=== PATIENT | female | born 1955 | race Caucasian/White ===

== ENCOUNTER 2022-02-20 10:35 | Emergency (ER) | payer OTHER ==
[2022-02-20 10:46] VITALS: BP 160/72; PULSE 65; TEMP 97.4; BMI 29.5
[2022-02-20 12:19] LABS: VENOUS BASE EXCESS 2.8 mmol/L (-2-2); VENOUS O2 SATURATION 32.5 % (70-80); VENOUS PCO2 45.1 mmHg (38-52); VENOUS PH 7.411 (7.310-7.410)
[2022-02-20 12:20] LABS: BASO % 0.5 % (0-2.0); EOS % 11.5 % (0-4.5); HEMATOCRIT 37.6 % (32.4-45.2); LYMPH % 12.8 % (8-40); MCH 28.8 pg (25.7-33.7); MCHC 34.6 g/dl (32.0-36.0); MEAN CELL VOLUME 83.1 fl (80-96); MEAN PLT VOLUME 6.9 fl (7.5-11.1); MONO % 6.9 % (3.8-10.2); NEUT % 68.3 % (42.8-82.8); PLATELET COUNT 264 10^3/uL (134-434); RBC 4.53 M/mm3 (3.60-5.2); RDW 13.7 % (11.6-15.6); WHITE BLOOD COUNT 8.2 K/mm3 (4.0-10.0)
[2022-02-20 12:44] LABS: CALCIUM 9.6 mg/dL (8.5-10.1)
[2022-02-20 12:45] LABS: ALBUMIN 3.7 g/dl (3.4-5.0)
[2022-02-20 12:48] LABS: CREATININE 0.8 mg/dL (0.55-1.3)
[2022-02-20] MEDS ORDERED: ALBUTEROL SO4 2.5/IPRATROPIUM 0.5 INH SOL 3 ML VIAL.NEB. NEB ONE ×2 (12:48→12:58)
[2022-02-20 12:50] LABS: BILIRUBIN,TOTAL 0.4 mg/dL (0.2-1); TOT PROT 7.1 g/dl (6.4-8.2)
[2022-02-20] MEDS ORDERED: SODIUM CHLORIDE 0.9% 500 ML INFUS.BAG IV ONE (13:40)
== END 2022-02-20 16:11 | disposition home or self-care (01) ==
LOC: JER 10:35
PROC: 3E0F7GC Introduction of Other Therapeutic Substance into Respiratory Tract, Via Natural or Artificial Opening (ICD-10-PCS; principal; 2022-02-20)
DX: R06.02 Shortness of breath (principal); R07.9 Chest pain, unspecified
CPT/HCPCS: 36415; 71046-TC-FY; 80053; 82803; 84484; 85025; 93005; 93010; 99285-25

== ENCOUNTER 2022-06-04 15:26 | Emergency (ER) | payer OTHER ==
[2022-06-04 15:43] VITALS: BP 132/75; PULSE 68; RESP 22; TEMP 98.1; BMI 65.2
[2022-06-04] MEDS ORDERED: DEXAMETHASONE SOD PHOSPHATE 10 MG/1 ML VIAL IM ONE (16:58)
[2022-06-04] MEDS ORDERED: DEXAMETHASONE SOD PHOSPHATE 10 MG/1 ML VIAL ONE (17:15)
[2022-06-04] MEDS ORDERED: ALBUTEROL SO4 2.5/IPRATROPIUM 0.5 INH SOL 3 ML VIAL.NEB. NEB ONE ×2 (17:15→17:26)
[2022-06-04] MEDS: ALBUTEROL SO4 2.5/IPRATROPIUM 0.5 INH SOL 3 ML VIAL.NEB. NEB SCH ×2 (17:25→18:26)
== END 2022-06-04 18:45 | disposition home or self-care (01) ==
LOC: JER 15:26
PROC: 3E023GC Introduction of Other Therapeutic Substance into Muscle, Percutaneous Approach (ICD-10-PCS; principal; 2022-06-04)
PROC: 3E0F7GC Introduction of Other Therapeutic Substance into Respiratory Tract, Via Natural or Artificial Opening (ICD-10-PCS; 2022-06-04)
DX: J44.1 Chronic obstructive pulmonary disease with (acute) exacerbation (principal)
CPT/HCPCS: 0241U-QW; 99284-25; J1100

== ENCOUNTER 2022-06-06 18:49 | Observation (INO) | payer OTHER ==
[2022-06-06 21:25] VITALS: BMI 29.5
[2022-06-06 23:00] LABS: BASO % 0.4 % (0-2.0); EOS % 0.4 % (0-4.5); HEMATOCRIT 38.1 % (32.4-45.2); HEMOGLOBIN 12.8 GM/dL (10.7-15.3); LYMPH % 8.3 % (8-40); MCH 27.9 pg (25.7-33.7); MCHC 33.5 g/dl (32.0-36.0); MEAN CELL VOLUME 83.3 fl (80-96); MEAN PLT VOLUME 6.9 fl (7.5-11.1); MONO % 3.2 % (3.8-10.2); NEUT % 87.7 % (42.8-82.8); PLATELET COUNT 303 10^3/uL (134-434); RBC 4.58 M/mm3 (3.60-5.2); RDW 14.7 % (11.6-15.6); WHITE BLOOD COUNT 7.6 K/mm3 (4.0-10.0)
[2022-06-06 23:22] LABS: CALCIUM 9.4 mg/dL (8.5-10.1)
[2022-06-06 23:23] LABS: ALBUMIN 3.9 g/dl (3.4-5.0); BLOOD UREA NITROGEN 13.5 mg/dL (7-18)
[2022-06-06 23:26] LABS: CREATININE 0.9 mg/dL (0.55-1.3)
[2022-06-06 23:28] LABS: TOT PROT 7.6 g/dl (6.4-8.2)
[2022-06-07 01:08] LABS: BILIRUBIN,TOTAL 0.4 mg/dL (0.2-1)
[2022-06-07] MEDS ORDERED: ASPIRIN 81 MG CHEWABLE TABLETS PO ONE (01:47)
[2022-06-07] MEDS ORDERED: ALBUTEROL SO4 0.083% IH SOL 2.5 MG/3 ML VIAL.NEB. NEB PRN (02:10)
[2022-06-07] MEDS ORDERED: ASPIRIN 81 MG CHEWABLE TABLETS ONE (02:59)
[2022-06-07] MEDS: INSULIN SLIDING SCALE (NOVOLOG) 1 VIAL SQ SCH ×2 (07:00→11:35)
[2022-06-07 07:59] LABS: BASO % 0.2 % (0-2.0); EOS % 1.9 % (0-4.5); HEMATOCRIT 35.7 % (32.4-45.2); HEMOGLOBIN 12.3 GM/dL (10.7-15.3); MCH 28.4 pg (25.7-33.7); MCHC 34.4 g/dl (32.0-36.0); MEAN CELL VOLUME 82.5 fl (80-96); MEAN PLT VOLUME 7.1 fl (7.5-11.1); MONO % 8.1 % (3.8-10.2); NEUT % 74.8 % (42.8-82.8); PLATELET COUNT 292 10^3/uL (134-434); RBC 4.33 M/mm3 (3.60-5.2); RDW 14.5 % (11.6-15.6); WHITE BLOOD COUNT 8.3 K/mm3 (4.0-10.0)
[2022-06-07 08:34] LABS: CALCIUM 9.4 mg/dL (8.5-10.1)
[2022-06-07 08:35] LABS: MAGNESIUM 2.4 mg/dL (1.8-2.4)
[2022-06-07 08:36] LABS: BLOOD UREA NITROGEN 16.5 mg/dL (7-18)
[2022-06-07 08:37] LABS: ALBUMIN 3.7 g/dl (3.4-5.0)
[2022-06-07 08:39] LABS: CREATININE 0.7 mg/dL (0.55-1.3)
[2022-06-07 08:40] LABS: TOT PROT 6.8 g/dl (6.4-8.2)
[2022-06-07 08:42] LABS: BILIRUBIN,TOTAL 0.4 mg/dL (0.2-1)
[2022-06-07] MEDS ORDERED: FLUTICASONE/UMECLIDIN/VILANTER(200-62.5-25 TRELEGY ELLIPTA) INAHLER IH SCH (10:00)
[2022-06-07] MEDS ORDERED: PANTOPRAZOLE 40 MG TABLET PO SCH (10:00)
[2022-06-07] MEDS ORDERED: amLODIPine BESYLATE 5 MG TABLET (FP) PO SCH (10:00)
[2022-06-07] MEDS ORDERED: PANTOPRAZOLE 40 MG TABLET PO ONE (10:32)
[2022-06-07] MEDS ORDERED: metoPROLOL SUCCINATE 25 MG TAB.SR.24H (FP) PO ONE (10:33)
[2022-06-07] MEDS ORDERED: amLODIPine BESYLATE 5 MG TABLET (FP) ONE (10:33)
[2022-06-07] MEDS ORDERED: ALBUTEROL SO4 2.5/IPRATROPIUM 0.5 INH SOL 3 ML VIAL.NEB. NEB ONE (14:00)
[2022-06-07 15:33] VITALS: BP 143/72; PULSE 59; RESP 18; TEMP 98.1
[2022-06-07] MEDS ORDERED: ATORVASTATIN CA 80 MG TABLET (FP) PO SCH (22:00)
[2022-06-07] MEDS ORDERED: MONTELUKAST NA 10 MG TABLET PO SCH (22:00)
[2022-06-08] MEDS ORDERED: ASPIRIN 81 MG CHEWABLE TABLETS PO SCH (10:00)
== END 2022-06-07 15:30 | disposition home or self-care (01) ==
LOC: JER 18:49 → JERBED 06-07 00:31
PROVIDERS: ADMIT Internal Medicine; ATTEND Internal Medicine
PROC: 3E0F7GC Introduction of Other Therapeutic Substance into Respiratory Tract, Via Natural or Artificial Opening (ICD-10-PCS; principal; 2022-06-07)
DX: R07.89 Other chest pain (principal); J45.909 Unspecified asthma, uncomplicated; I10 Essential (primary) hypertension; E11.9 Type 2 diabetes mellitus without complications; K21.9 Gastro-esophageal reflux disease without esophagitis; Z20.822 Contact with and (suspected) exposure to COVID-19; Z95.5 Presence of coronary angioplasty implant and graft; Z88.0 Allergy status to penicillin
CPT/HCPCS: 36415; 71045-TC-FY; 76705-TC; 80053; 80061; 82962; 83690; 83735; 83880; 84484; 85025; 85379; 93005; 93010; 94640; 99285-25; C9803-CS; G0378; U0003; U0005

== ENCOUNTER 2022-06-10 08:14 | Emergency (ER) | payer OTHER ==
[2022-06-10 08:36] VITALS: RESP 20; TEMP 97.5; BMI 25.4
[2022-06-10] MEDS ORDERED: ALBUTEROL SO4 2.5/IPRATROPIUM 0.5 INH SOL 3 ML VIAL.NEB. NEB ONE (08:37)
[2022-06-10] MEDS: ALBUTEROL SO4 2.5/IPRATROPIUM 0.5 INH SOL 3 ML VIAL.NEB. NEB SCH ×2 (09:14→09:17)
[2022-06-10 09:52] VITALS: BP 138/67; PULSE 56
== END 2022-06-10 11:41 | disposition home or self-care (01) ==
LOC: JER 08:14
PROC: 3E0F7GC Introduction of Other Therapeutic Substance into Respiratory Tract, Via Natural or Artificial Opening (ICD-10-PCS; principal; 2022-06-10)
DX: U07.1 COVID-19 (principal); J44.1 Chronic obstructive pulmonary disease with (acute) exacerbation
CPT/HCPCS: 0241U-QW; 93005; 93010; 94640; 99284-25

== ENCOUNTER 2022-06-12 10:38 | Emergency (ER) | payer OTHER ==
[2022-06-12 11:15] VITALS: BP 150/69; PULSE 58; RESP 22; TEMP 97.7; BMI 29.5
[2022-06-12] MEDS ORDERED: ALBUTEROL SO4 2.5/IPRATROPIUM 0.5 INH SOL 3 ML VIAL.NEB. NEB ONE (11:27)
[2022-06-12] MEDS: ALBUTEROL SO4 2.5/IPRATROPIUM 0.5 INH SOL 3 ML VIAL.NEB. NEB SCH ×4 (11:28→12:04)
[2022-06-12 11:51] LABS: INR 1.11 (0.83-1.09); PROTHROMBIN TIME (PATIENT) 12.8 SEC (9.7-13.0)
[2022-06-12 11:55] LABS: ACTIVATED PTT 24.3 SECONDS (25.2-36.5)
[2022-06-12 12:02] LABS: ALBUMIN 3.8 g/dl (3.4-5.0)
[2022-06-12 12:03] LABS: BLOOD UREA NITROGEN 13.1 mg/dL (7-18)
[2022-06-12 12:05] LABS: CREATININE 0.7 mg/dL (0.55-1.3)
[2022-06-12 12:05] LABS: PH,URINE 7.5 (5.0-8.0); URINE APPEARANCE CLEAR; URINE BILIRUBIN NEGATIVE (NEGATIVE); URINE COLOR YELLOW; URINE GLUCOSE (UA) NEGATIVE (NEGATIVE); URINE KETONE NEGATIVE (NEGATIVE); URINE LEUK ESTERASE NEGATIVE (NEGATIVE); URINE NITRITE NEGATIVE (NEGATIVE); URINE PROTEIN NEGATIVE (NEGATIVE); URINE UROBILINOGEN 0.2 mg/dL (0.2-1.0)
[2022-06-12 12:07] LABS: BILIRUBIN,TOTAL 0.5 mg/dL (0.2-1); TOT PROT 7.2 g/dl (6.4-8.2)
[2022-06-12 12:09] LABS: BASO % 0.4 % (0-2.0); EOS % 9.5 % (0-4.5); HEMATOCRIT 38.4 % (32.4-45.2); LYMPH % 23.5 % (8-40); MCH 27.8 pg (25.7-33.7); MCHC 33.8 g/dl (32.0-36.0); MEAN CELL VOLUME 82.3 fl (80-96); MEAN PLT VOLUME 7.4 fl (7.5-11.1); MONO % 9.8 % (3.8-10.2); NEUT % 56.8 % (42.8-82.8); PLATELET COUNT 307 10^3/uL (134-434); RBC 4.66 M/mm3 (3.60-5.2); RDW 14.7 % (11.6-15.6); WHITE BLOOD COUNT 9.7 K/mm3 (4.0-10.0)
== END 2022-06-12 17:54 | disposition home or self-care (01) ==
LOC: JER 10:38
PROC: 3E0F7GC Introduction of Other Therapeutic Substance into Respiratory Tract, Via Natural or Artificial Opening (ICD-10-PCS; principal; 2022-06-12)
DX: U07.1 COVID-19 (principal)
CPT/HCPCS: 36415; 71045-TC-FY; 71275-TC; 80053; 81003; 84484; 85025; 85610; 85730; 87086; 93005; 93010; 94640; 99285-25; Q9967

== ENCOUNTER 2023-05-05 17:07 | Inpatient (IN) | payer OTHER ==
[2023-05-05] MEDS ORDERED: methylPREDNISolone NA SUCC 125 MG/2 ML VIAL IVPUSH ONE (18:09)
[2023-05-05] MEDS ORDERED: AZITHROMYCIN IVPB 500 MG in DEXTROSE 5%-WATER - 250 ML IVPB ONE (18:26)
[2023-05-05] MEDS ORDERED: CEFTRIAXONE 1,000 MG in DEXTROSE 5%-WATER - 50 ML IVPB ONE (18:26)
[2023-05-05] MEDS ORDERED: methylPREDNISolone NA SUCC 125 MG/2 ML VIAL ONE (18:33)
[2023-05-05] MEDS ORDERED: ALBUTEROL SO4 2.5/IPRATROPIUM 0.5 INH SOL 3 ML VIAL.NEB. NEB ONE (18:33)
[2023-05-05] MEDS ORDERED: CEFTRIAXONE 1 GM/50 ML BAG ONE (18:34)
[2023-05-05] MEDS: ALBUTEROL SO4 2.5/IPRATROPIUM 0.5 INH SOL 3 ML VIAL.NEB. NEB SCH ×2 (18:41→19:03)
[2023-05-05 18:43] LABS: VENOUS BASE EXCESS 2.2 mmol/L (-2-2); VENOUS O2 SATURATION 85.5 % (70-80); VENOUS PCO2 34.2 mmHg (38-52); VENOUS PH 7.485 (7.310-7.410)
[2023-05-05] MEDS ORDERED: AZITHROMYCIN IVPB 500 MG/250 ML BAG IVPB ONE (18:57)
[2023-05-05 18:59] LABS: BASO % 0.4 % (0-2.0); EOS % 10.4 % (0-4.5); HEMATOCRIT 37.7 % (32.4-45.2); HEMOGLOBIN 12.6 GM/dL (10.7-15.3); LYMPH % 12.3 % (8-40); MCH 26.9 pg (25.7-33.7); MCHC 33.5 g/dl (32.0-36.0); MEAN CELL VOLUME 80.2 fl (80-96); MEAN PLT VOLUME 7.3 fl (7.5-11.1); MONO % 7.4 % (3.8-10.2); NEUT % 69.5 % (42.8-82.8); PLATELET COUNT 349 10^3/uL (134-434); RDW 14.2 % (11.6-15.6)
[2023-05-05 19:18] LABS: CALCIUM 9.6 mg/dL (8.5-10.1)
[2023-05-05 19:19] LABS: ALBUMIN 3.8 g/dl (3.4-5.0); BLOOD UREA NITROGEN 12.7 mg/dL (7-18)
[2023-05-05 19:22] LABS: CREATININE 0.8 mg/dL (0.55-1.3)
[2023-05-05 19:23] LABS: BILIRUBIN,TOTAL 0.4 mg/dL (0.2-1)
[2023-05-05 19:27] LABS: N-TERMINAL BNP 77.6 pg/ml (5-125)
[2023-05-05] MEDS: ALBUTEROL SO4 2.5/IPRATROPIUM 0.5 INH SOL 3 ML VIAL.NEB. NEB PRN (23:50)
[2023-05-06 02:35] VITALS: BMI 34.0
[2023-05-06] MEDS: methylPREDNISolone NA SUCC 40 MG/1 ML VIAL IVPUSH SCH ×4 (03:38→21:41)
[2023-05-06] MEDS: ACETAMINOPHEN 325 MG TABLET (FP) PO PRN ×3 (04:02→21:39)
[2023-05-06] MEDS: ALBUTEROL SO4 2.5/IPRATROPIUM 0.5 INH SOL 3 ML VIAL.NEB. NEB PRN (06:37)
[2023-05-06] MEDS: metFORMIN HCL 500 MG TABLET (FP) PO SCH ×2 (06:46→16:36)
[2023-05-06] MEDS: INSULIN SLIDING SCALE (NOVOLOG) 1 VIAL SQ SCH ×4 (06:46→21:47)
[2023-05-06 08:56] LABS: BASO % 0.1 % (0-2.0); EOS % 0.2 % (0-4.5); HEMATOCRIT 36.9 % (32.4-45.2); HEMOGLOBIN 12.2 GM/dL (10.7-15.3); LYMPH % 8.3 % (8-40); MCH 27.1 pg (25.7-33.7); MCHC 33.1 g/dl (32.0-36.0); MEAN PLT VOLUME 7.5 fl (7.5-11.1); MONO % 1.3 % (3.8-10.2); NEUT % 90.1 % (42.8-82.8); PLATELET COUNT 338 10^3/uL (134-434); RDW 14.2 % (11.6-15.6); WHITE BLOOD COUNT 7.7 K/mm3 (4.0-10.0)
[2023-05-06 09:17] LABS: POTASSIUM 4.1 mmol/L (3.5-5.1)
[2023-05-06 09:23] LABS: BLOOD UREA NITROGEN 14.2 mg/dL (7-18)
[2023-05-06] MEDS: LISINOPRIL 20 MG TABLET PO SCH (11:03)
[2023-05-06] MEDS: ASPIRIN COATED 81 MG TABLET.EC PO SCH (11:04)
[2023-05-06] MEDS: PANTOPRAZOLE 40 MG TABLET PO SCH (11:04)
[2023-05-06] MEDS ORDERED: ALBUTEROL SO4 0.083% IH SOL 2.5 MG/3 ML VIAL.NEB. NEB PRN (13:33)
[2023-05-06] MEDS: ALBUTEROL SO4 2.5/IPRATROPIUM 0.5 INH SOL 3 ML VIAL.NEB. NEB SCH ×3 (13:45→20:27)
[2023-05-06] MEDS: LORATADINE 10 MG TABLET PO SCH (16:12)
[2023-05-06] MEDS: FLUTICASONE PROP 0.05% 16 GM NASAL SPRAY NS SCH (16:17)
[2023-05-06] MEDS: ENOXAPARIN NA (PORCINE) 40 MG/0.4 ML DISP.SYRIN SQ SCH (16:18)
[2023-05-06] MEDS ORDERED: INSULIN (NOVOLOG) ASPART 100 UNITS/ML 10ML VIAL ONE ×2 (18:29→21:25)
[2023-05-06] MEDS: ATORVASTATIN CA 80 MG TABLET (FP) PO SCH (21:40)
[2023-05-06] MEDS ORDERED: MONTELUKAST NA 5 MG TAB.CHEW PO SCH (22:00)
[2023-05-07] MEDS: methylPREDNISolone NA SUCC 40 MG/1 ML VIAL IVPUSH SCH ×4 (03:39→20:46)
[2023-05-07] MEDS ORDERED: METOCLOPRAMIDE HCL INJECTION 10 MG/2 ML VIAL IVPB ONE (05:04)
[2023-05-07] MEDS ORDERED: INSULIN (NOVOLOG) ASPART 100 UNITS/ML 10ML VIAL ONE ×3 (05:42→17:47)
[2023-05-07] MEDS: ACETAMINOPHEN 325 MG TABLET (FP) PO PRN ×2 (05:57→18:22)
[2023-05-07] MEDS: INSULIN SLIDING SCALE (NOVOLOG) 1 VIAL SQ SCH ×4 (06:05→21:55)
[2023-05-07] MEDS: metFORMIN HCL 500 MG TABLET (FP) PO SCH ×2 (06:06→17:08)
[2023-05-07] MEDS: ALBUTEROL SO4 2.5/IPRATROPIUM 0.5 INH SOL 3 ML VIAL.NEB. NEB SCH ×4 (08:13→20:12)
[2023-05-07] MEDS: FLUTICASONE PROP 0.05% 16 GM NASAL SPRAY NS SCH (09:14)
[2023-05-07] MEDS: ASPIRIN COATED 81 MG TABLET.EC PO SCH (09:14)
[2023-05-07] MEDS: ENOXAPARIN NA (PORCINE) 40 MG/0.4 ML DISP.SYRIN SQ SCH (09:14)
[2023-05-07] MEDS: PANTOPRAZOLE 40 MG TABLET PO SCH (09:14)
[2023-05-07] MEDS: LORATADINE 10 MG TABLET PO SCH (09:14)
[2023-05-07] MEDS: LISINOPRIL 20 MG TABLET PO SCH (09:14)
[2023-05-07] MEDS: ATORVASTATIN CA 80 MG TABLET (FP) PO SCH (21:42)
[2023-05-07] MEDS: MONTELUKAST NA 10 MG TABLET PO SCH (21:42)
[2023-05-07] MEDS: MELATONIN 5 MG TABLETS PO PRN (21:59)
[2023-05-08] MEDS: methylPREDNISolone NA SUCC 40 MG/1 ML VIAL IVPUSH SCH ×4 (04:00→22:08)
[2023-05-08] MEDS: INSULIN SLIDING SCALE (NOVOLOG) 1 VIAL SQ SCH ×4 (06:09→22:17)
[2023-05-08] MEDS: metFORMIN HCL 500 MG TABLET (FP) PO SCH ×2 (06:09→17:31)
[2023-05-08] MEDS: ALBUTEROL SO4 2.5/IPRATROPIUM 0.5 INH SOL 3 ML VIAL.NEB. NEB SCH ×4 (07:07→19:03)
[2023-05-08] MEDS: ASPIRIN COATED 81 MG TABLET.EC PO SCH (09:24)
[2023-05-08] MEDS: LORATADINE 10 MG TABLET PO SCH (09:25)
[2023-05-08] MEDS: LISINOPRIL 20 MG TABLET PO SCH (09:25)
[2023-05-08] MEDS: ACETAMINOPHEN 325 MG TABLET (FP) PO PRN (09:25)
[2023-05-08] MEDS: PANTOPRAZOLE 40 MG TABLET PO SCH (09:25)
[2023-05-08] MEDS: ENOXAPARIN NA (PORCINE) 40 MG/0.4 ML DISP.SYRIN SQ SCH (09:26)
[2023-05-08] MEDS: FLUTICASONE PROP 0.05% 16 GM NASAL SPRAY NS SCH (09:33)
[2023-05-08] MEDS ORDERED: INSULIN (NOVOLOG) ASPART 100 UNITS/ML 10ML VIAL ONE ×3 (12:41→21:48)
[2023-05-08] MEDS: CYCLOBENZAPRINE HCL 5 MG TABLET PO SCH (17:31)
[2023-05-08] MEDS: MONTELUKAST NA 10 MG TABLET PO SCH (22:07)
[2023-05-08] MEDS: ATORVASTATIN CA 80 MG TABLET (FP) PO SCH (22:07)
[2023-05-08] MEDS: MELATONIN 5 MG TABLETS PO PRN (22:18)
[2023-05-09] MEDS ORDERED: INSULIN (NOVOLOG) ASPART 100 UNITS/ML 10ML VIAL ONE (06:07)
[2023-05-09] MEDS: methylPREDNISolone NA SUCC 40 MG/1 ML VIAL IVPUSH SCH ×3 (06:37→22:23)
[2023-05-09] MEDS: metFORMIN HCL 500 MG TABLET (FP) PO SCH ×2 (06:37→17:06)
[2023-05-09] MEDS: ACETAMINOPHEN 325 MG TABLET (FP) PO PRN (06:43)
[2023-05-09] MEDS: INSULIN SLIDING SCALE (NOVOLOG) 1 VIAL SQ SCH ×4 (06:49→22:24)
[2023-05-09] MEDS: ALBUTEROL SO4 2.5/IPRATROPIUM 0.5 INH SOL 3 ML VIAL.NEB. NEB SCH ×4 (07:45→20:10)
[2023-05-09] MEDS: PANTOPRAZOLE 40 MG TABLET PO SCH (09:37)
[2023-05-09] MEDS: ENOXAPARIN NA (PORCINE) 40 MG/0.4 ML DISP.SYRIN SQ SCH (09:37)
[2023-05-09] MEDS: LISINOPRIL 20 MG TABLET PO SCH (09:37)
[2023-05-09] MEDS: ASPIRIN COATED 81 MG TABLET.EC PO SCH (09:37)
[2023-05-09] MEDS: LORATADINE 10 MG TABLET PO SCH (09:37)
[2023-05-09] MEDS: CYCLOBENZAPRINE HCL 5 MG TABLET PO SCH (09:38)
[2023-05-09] MEDS: FLUTICASONE PROP 0.05% 16 GM NASAL SPRAY NS SCH (10:25)
[2023-05-09] MEDS ORDERED: MELATONIN 5 MG TABLETS PO PRN (12:47)
[2023-05-09] MEDS: ATORVASTATIN CA 80 MG TABLET (FP) PO SCH (22:23)
[2023-05-09] MEDS: MONTELUKAST NA 10 MG TABLET PO SCH (22:23)
[2023-05-10] MEDS: metFORMIN HCL 500 MG TABLET (FP) PO SCH ×2 (06:32→16:24)
[2023-05-10] MEDS: methylPREDNISolone NA SUCC 40 MG/1 ML VIAL IVPUSH SCH ×2 (06:33→22:57)
[2023-05-10] MEDS: INSULIN SLIDING SCALE (NOVOLOG) 1 VIAL SQ SCH ×4 (07:16→22:59)
[2023-05-10] MEDS: ALBUTEROL SO4 2.5/IPRATROPIUM 0.5 INH SOL 3 ML VIAL.NEB. NEB SCH ×4 (07:30→19:30)
[2023-05-10] MEDS: ENOXAPARIN NA (PORCINE) 40 MG/0.4 ML DISP.SYRIN SQ SCH (09:28)
[2023-05-10] MEDS: PANTOPRAZOLE 40 MG TABLET PO SCH (09:29)
[2023-05-10] MEDS: LISINOPRIL 20 MG TABLET PO SCH (09:29)
[2023-05-10] MEDS: CYCLOBENZAPRINE HCL 5 MG TABLET PO SCH (09:29)
[2023-05-10] MEDS: FLUTICASONE PROP 0.05% 16 GM NASAL SPRAY NS SCH (09:29)
[2023-05-10] MEDS: ASPIRIN COATED 81 MG TABLET.EC PO SCH (09:30)
[2023-05-10] MEDS: LORATADINE 10 MG TABLET PO SCH (09:30)
[2023-05-10] MEDS: CLOTRIMAZOLE 1% CREAM TP SCH ×2 (11:27→23:00)
[2023-05-10] MEDS: MONTELUKAST NA 10 MG TABLET PO SCH (22:58)
[2023-05-10] MEDS: ATORVASTATIN CA 80 MG TABLET (FP) PO SCH (22:58)
[2023-05-11] MEDS: INSULIN SLIDING SCALE (NOVOLOG) 1 VIAL SQ SCH ×2 (06:12→11:05)
[2023-05-11] MEDS: metFORMIN HCL 500 MG TABLET (FP) PO SCH (06:12)
[2023-05-11] MEDS: ALBUTEROL SO4 2.5/IPRATROPIUM 0.5 INH SOL 3 ML VIAL.NEB. NEB SCH ×2 (07:10→11:15)
[2023-05-11] MEDS ORDERED: HYDROCORTISONE 0.5% TOPICAL CREAM 30 GM TUBE TP PRN (08:56)
[2023-05-11] MEDS: CYCLOBENZAPRINE HCL 5 MG TABLET PO SCH (09:13)
[2023-05-11] MEDS: LORATADINE 10 MG TABLET PO SCH (09:13)
[2023-05-11] MEDS: PANTOPRAZOLE 40 MG TABLET PO SCH (09:13)
[2023-05-11] MEDS: methylPREDNISolone NA SUCC 40 MG/1 ML VIAL IVPUSH SCH (09:13)
[2023-05-11] MEDS: LISINOPRIL 20 MG TABLET PO SCH (09:13)
[2023-05-11] MEDS: ENOXAPARIN NA (PORCINE) 40 MG/0.4 ML DISP.SYRIN SQ SCH (09:13)
[2023-05-11] MEDS: ASPIRIN COATED 81 MG TABLET.EC PO SCH (09:13)
[2023-05-11] MEDS: FLUTICASONE PROP 0.05% 16 GM NASAL SPRAY NS SCH (09:14)
[2023-05-11] MEDS: CLOTRIMAZOLE 1% CREAM TP SCH (09:14)
[2023-05-11] MEDS ORDERED: INSULIN (NOVOLOG) ASPART 100 UNITS/ML 10ML VIAL ONE (11:04)
[2023-05-11 12:54] VITALS: BP 129/71; PULSE 82; RESP 20; TEMP 97.2
== END 2023-05-11 13:05 | disposition home or self-care (01) | DRG 192 ==
LOC: JER 17:07 → INTOOBSV 19:33 → UNDOADMOB 19:33 → JERBED 19:33 → J8W 22:42 → JERBED 22:42 → J8W 05-06 15:46 → OBSVTOIN 05-08 09:28
PROVIDERS: ADMIT Internal Medicine; ATTEND Internal Medicine
DX: J44.1 Chronic obstructive pulmonary disease with (acute) exacerbation (principal); E11.9 Type 2 diabetes mellitus without complications; I10 Essential (primary) hypertension; J45.909 Unspecified asthma, uncomplicated; I25.10 Atherosclerotic heart disease of native coronary artery without angina pectoris; K21.9 Gastro-esophageal reflux disease without esophagitis; Z95.5 Presence of coronary angioplasty implant and graft; E66.9 Obesity, unspecified; Z68.34 Body mass index [BMI] 34.0-34.9, adult
CPT/HCPCS: 0241U-QW; 36415; 71045-TC-FY; 71250-TC; 80048; 80053; 82803; 82962; 83880; 84484; 85025; 87040; 93005; 93010; 94640; 99285-25; G0378

== ENCOUNTER 2023-05-28 17:55 | Emergency (ER) | payer OTHER ==
[2023-05-28 18:06] VITALS: BP 147/73; PULSE 80; RESP 20; TEMP 97.7; BMI 33.6
[2023-05-28] MEDS ORDERED: FAMOTIDINE 20 MG/50 ML IVPB 20 MG/50 ML MG IVPB ONE ×2 (19:05→20:41)
[2023-05-28] MEDS ORDERED: ONDANSETRON 4 MG/2 ML VIAL IVPUSH ONE (19:05)
[2023-05-28] MEDS ORDERED: LACTATED RINGERS SOLUTION 1000 ML INFUS.BAG IV ONE (19:05)
[2023-05-28] MEDS ORDERED: ACETAMINOPHEN 1000 MG/100 ML BAG IVPB ONE (19:55)
[2023-05-28] MEDS ORDERED: ONDANSETRON 4 MG/2 ML VIAL ONE (20:41)
[2023-05-28] MEDS ORDERED: ACETAMINOPHEN INJECTION 100 ML IVPB ONE (20:41)
[2023-05-28] MEDS ORDERED: SUCRALFATE 1 GM TABLET (FP) PO ONE (20:42)
[2023-05-28] MEDS ORDERED: SUCRALFATE 1 GM TABLET (FP) ONE (21:11)
[2023-05-28 21:15] LABS: BASO % 0.6 % (0-2.0); EOS % 32.7 % (0-4.5); HEMATOCRIT 36.1 % (32.4-45.2); HEMOGLOBIN 12.3 GM/dL (10.7-15.3); LYMPH % 13.5 % (8-40); MCH 27.5 pg (25.7-33.7); MCHC 34.1 g/dl (32.0-36.0); MEAN CELL VOLUME 80.4 fl (80-96); MONO % 4.1 % (3.8-10.2); NEUT % 49.1 % (42.8-82.8); RBC 4.49 M/mm3 (3.60-5.2); RDW 14.6 % (11.6-15.6); WHITE BLOOD COUNT 8.6 K/mm3 (4.0-10.0)
[2023-05-28 21:20] LABS: INR 1.05 (0.83-1.09); PROTHROMBIN TIME (PATIENT) 12.2 SEC (9.7-13.0)
[2023-05-28 21:23] LABS: ACTIVATED PTT 23.5 SECONDS (25.2-36.5)
[2023-05-28 21:43] LABS: ALBUMIN 3.6 g/dl (3.4-5.0); BLOOD UREA NITROGEN 9.2 mg/dL (7-18); CALCIUM 9.4 mg/dL (8.5-10.1)
[2023-05-28 21:46] LABS: CREATININE 0.9 mg/dL (0.55-1.3)
[2023-05-28 21:48] LABS: BILIRUBIN,TOTAL 0.6 mg/dL (0.2-1); TOT PROT 7.1 g/dl (6.4-8.2)
[2023-05-28 21:54] LABS: ANISOCYTOSIS 2+; MACROCYTOSIS 0; OVALOCYTE 1+
[2023-05-28 21:55] LABS: MEAN PLT VOLUME 8.2 fl (7.5-11.1); PLATELET COUNT 106 10^3/uL (134-434)
== END 2023-05-28 22:46 | disposition home or self-care (01) ==
LOC: JER 17:55
PROC: 3E033GC Introduction of Other Therapeutic Substance into Peripheral Vein, Percutaneous Approach (ICD-10-PCS; principal; 2023-05-28)
PROC: 3E033NZ Introduction of Analgesics, Hypnotics, Sedatives into Peripheral Vein, Percutaneous Approach (ICD-10-PCS; 2023-05-28)
PROC: 3E033GC Introduction of Other Therapeutic Substance into Peripheral Vein, Percutaneous Approach (ICD-10-PCS; 2023-05-28)
DX: R10.13 Epigastric pain (principal); R10.11 Right upper quadrant pain; K59.00 Constipation, unspecified; R14.3 Flatulence; R63.0 Anorexia
CPT/HCPCS: 36415; 71045-TC-FY; 76705-TC; 80053; 83690; 84484; 85025; 85610; 85730; 93005; 93010; 99285-25